=== PATIENT | male | born 1945 | race Caucasian/White ===

== ENCOUNTER 2017-07-07 14:39 | Emergency (ER) | payer OTHER, MEDICAID ==
[2017-07-07 14:50] VITALS: RESP 16; TEMP 97.7
[2017-07-07] MEDS ORDERED: TDAP ADULT 0.5 ML INJ (BOOSTRIX) IM ONE (15:34)
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
[2017-07-07 16:19] VITALS: BP 153/80; PULSE 88; O2SAT 96
== END 2017-07-07 16:00 | disposition home or self-care (01) ==
LOC: EDUNIT#
PROC: 0HQ1XZZ Repair Face Skin, External Approach (ICD-10-PCS; principal; 2017-07-07)
DX: S09.90XA Unspecified injury of head, initial encounter (principal); S01.81XA Laceration without foreign body of other part of head, initial encounter; J45.909 Unspecified asthma, uncomplicated; Z23 Encounter for immunization; Y08.89XA Assault by other specified means, initial encounter